=== PATIENT | male | born 1935 | race Caucasian/White ===

== ENCOUNTER 2019-10-21 11:02 | Emergency (ER) | payer MEDICARE, SELFPAY ==
[2019-10-21 11:07] VITALS: BP 190/75; PULSE 76; RESP 19; TEMP 36.4; O2SAT 94; BMI 20.9
[2019-10-21 11:13] VITALS: PULSE 75; RESP 17; O2SAT 95
--- NOTE | 2019-10-21 11:20 | USCV_ITS ---
WarrenKassie alicea Age: 84 Gender: M : 1935 Exam Date: 10/21/2019 11:43 Ordering Phys: Emily Carrasco Technologist: Edith Carlos [place]am [place] [facility] [place]ication: PAIN IN CALVES AND TAILBONE Risk Factors: Unknown Previous Vascular Surgery: None RIGHT LEFT BP: 160.0 / 67.00 BP: 150.0/ 75.00 0 0 Waveform Velocity (cm/s) Velocity (cm/s) Waveform Triphasic 76.6 Iliac Prox 141.4 Triphasic Triphasic 90.4 Iliac Mid 112.3 Biphasic Triphasic 79.6 Iliac Distal 112.3 Biphasic Triphasic 96.1 BRIM RAISER 212.5 Biphasic Triphasic 76.0 SFA Prox 89.3 Biphasic Triphasic 100.2 SFA Mid 147.5 Biphasic Triphasic 103.8 SFA Dist 97.5 Biphasic Biphasic 84.5 POP 106.0 Biphasic Biphasic 37.1 WIRE ROPE SLING MAKER 26.8 Biphasic Biphasic 23.1 DPA 23.4 Biphasic ELIOT 0.6 0.8 FINDINGS RT WIRE ROPE SLING MAKER 120 RT DPA 120 LT DPA 90 LT WIRE ROPE SLING MAKER 90 Moderate to dense heavy irregular plaques in the iliac and femoral arteries bilaterally Moderate diffuse dense irregular plaques in the right iliac and femoral arteries. CONCLUSIONS Abnormal resting ELIOT on the left side consistent with a moderately severe multi-segmental peripheral artery disease, ELIOT of 0.6 Abnormal resting ELIOT on the right side, suggestive of mild to moderate peripheral artery disease, ELIOT of 0.8 No similar previous studies are available for comparison Dr Chidi Mclean MD [facility] (Electronically Signed) Final Date: 21 October 2019 18:00 S
--- NOTE | 2019-10-21 11:24 | ED_ITS ---
HPI - Extremity Problem General: Chief complaint: Extremity Injury, Lower Stated complaint: pain both legs Time Seen by Provider: 10/21/19 11:06 Source: patient and family Mode of arrival: ambulatory Limitations: no limitations History of Present Illness: HPI Narrative: Patient is a very nice 84-year-old male who presents to ED today along with a family member for complaints of bilateral intermittent calf pain that has been present over the past few weeks. Patient tells me pain seems to be worse with walking/exertion. He states that he feels like he is about to develop muscle cramps to the calves however does not. He states he has noticed some coolness to the extremities. He complains of some lower tailbone pain as well. Patient denies numbness, tingling, loss of sensation to the lower extremities. He is not having any chest pain, shortness of breath, difficulty breathing. Patient does not have any known peripheral vascular disease. Family states he did have a cardiac balloon angioplasty a few years ago. MD Complaint: extremity pain Onset (ago): week(s) Pain Consistency: intermittent Location: left, right and lower extremity Quality: other (crampy) Exacerbating factors: walking Associated symptoms: Reports no associated symptoms; Deny chest pain, fever(s) or rash Review of Systems Const: Denies: fever(s), chills or body aches Card: Reports: leg pain with exertion; Denies: chest pain, palpitations, irregular heart rhythm, edema, swelling of feet/ankles, lightheadedness, syncope, pre-syncope, dyspnea on exertion, orthopnea or acrocyanosis Resp: Denies: dyspnea, productive cough, non-productive cough, hemoptysis or chest congestion GI: Denies: abdominal pain, nausea or vomiting : Denies: flank pain, difficulty urinating, dysuria, urinary frequency, ur inary urgency or urinary hesitancy Musc: Reports: back pain and extremity pain; Denies: neck pain, extremity swelling, joint pain, joint swelling, joint redness, joint warmth, joint stiffness or limited range of motion Skin/Breast: Denies: rash, skin pain, new lesions, changing lesions or changes in skin color Neuro: Denies: headache(s), numbness in extremities, weakness in extremities or sensory changes Physical Exam Const: COMMON NORMALS: no acute distress, patient oriented x3, no limitations and alert ORIENTATION/CONSCIOUSNESS: Yes oriented to person, Yes oriented to place and Yes oriented to time HENMT: COMMON NORMALS: normocephalic and atraumatic HEAD & SCALP: normocephalic and atraumatic Neck/C-Spine: COMMON NORMALS: full ROM GENERAL: Yes normal visual inspection Resp: COMMON NORMALS: normal respiratory effort and clear to auscultation bilaterally AUSCULTATION: clear to auscultation bilaterally Cardio: COMMON NORMALS: regular rate RATE: regular rate RHYTHM: abnormal rhythm with ectopic beats GI: COMMON NORMALS: Normal to inspection, nondistended, normoactive bowel sounds present, Soft to palpation, non-tender, No hepatosplenomegaly present and no masses PALPATION: Yes Soft to palpation and Yes No hepatosplenomegaly present : COMMON NORMALS: Yes no CVA tenderness BLADDER/KIDNEY EXAM: Yes no CVA tenderness Back/Pelvis: COMMON NORMALS: no CVA tenderness, thoracic and lumbar spine normal to inspection, no thoracic nor lumbar tenderness and thoraco-lumbar ROM normal OTHER: reports pain to lower sacral/coccyx region Extremity: OTHER: pts bilateral LEs are cool to the touch; he has good DP pulses; PT pulses are weak bilaterally; negative Sean's; no redness or swelling noted to either extremity Neuro: COMMON NORMALS: patient oriented x3, moves all extremities, no focal motor deficits, no sensory deficits noted and gait normal SENSORIUM/ORIENTATION: Yes alert, Yes oriented to person, Yes oriented to place and Yes oriented to time Skin: COMMON NORMALS: no rashes or lesions noted GENERAL SKIN EXAM: no rashes or lesions noted Course Vital Signs: Vital signs: Vital Signs Temperature 97.5 F L 10/21/19 11:07 Pulse Rate 72 10/21/19 13:18 Respiratory Rate 18 10/21/19 13:18 Blood Pressure 162/89 10/21/19 13:18 Pulse Oximetry 96 10/21/19 13:18 MDM - Extremity (Nontraumatic) MDM Narrative: Medical decision making narrative: Spoke to Dr. Birch regarding most appropriate imaging evaluation whether it be the ultrasound arterial versus CTA aorta with runoff. He feels with symptoms being intermittent for weeks and no signs of acute limb ischemia we should proceed with ultrasound arterial at this time. Patient has at least biphasic in some places triphasic flow throughout his lower extremities. He does complain of lower tailbone pain. His symptoms do not seem consistent with bilateral sacral radiculopathy. Symptoms seem more consistent with claudication. Patient states he does have a laboratory development technician and vascular surgeon that he is seen in [place]. He states he would like to follow-up with them but if he changes his mind will contact his PCP so they can refer him to a laboratory development technician or Dr. Lennon here. Patient noted to be hypertensive. He has no history of hypertensive nor is on blood pressure medications. Recommend he keep a blood pressure log and if blood pressures remain elevated he is to fill his lisinopril and start taking it. He is requesting something to help with the pain as he is having trouble sleeping. We will write him for a small amount of pain medications. Recommend he follow- up with PCP in the meantime. Strict return to ED precautions given. Lab Data: Labs: Lab Results 10/21/19 10/21/19 Range/Units 11:32 11:32 WBC 8.5 (4.0-10.0) 10^3/ uL RBC 4.63 (4.1-5.3) 10^6/u L Hgb 14.5 (11.7-16.6) g/dL Hct 44.7 (42.0-52.0) % MCV 96.5 H (80-94) fL MCH 31.3 (28.0-34.0) pg MCHC 32.4 (30.0-36.0) g/dL RDW 14.3 (12.1-15.1) % Plt Count 389 (130-400) 10^3/c mm MPV 10.5 H (7.4-10.4) fL Neut % (Auto) 85.4 % Lymph % (Auto) 4.9 % [place] % (Auto) 5.4 % Eos % (Auto) 2.8 % Baso % (Auto) 1.1 % Neut # (Auto) 7.27 (1.8-7.7) 10^3/u L Lymph # (Auto) 0.4 L (0.8-4.8) 10^3/u L [place] # (Auto) 0.5 (0.2-0.9) 10^3/u L Eos # (Auto) 0.2 (0.0-0.8) 10^3/u L Baso # (Auto) 0.1 (0.0-0.1) 10^3/u L Nucleated RBC % (a uto) 0 % Nucleated RBCs # 0.0 /100WBC Sodium 139 (136-145) mmol/L Potassium 4.2 (3.5-5.1) mmol/L Chloride 103 (98-107) mmol/L Carbon Dioxide 27 (22-29) mmol/L Anion Gap 13.2 (5-19) BUN 17 (8-23) mg/dL Creatinine 1.0 (0.7-1.2) mg/dL GFR Calculation Not Reportable Glucose 131 H (65-115) mg/dL Calculated Osmolal ity 286 (285-295) mOsm/k g Calcium 10.0 (8.5-10.5) mg/dL Total Bilirubin 0.4 (0.15-1.2) mg/dL AST 22 (0-40) U/L ALT 15 (0-41) U/L Alkaline Phosphata se 67 (40-130) IU/L Creatine Kinase 104 (39-308) U/L Total Protein 6.9 (6.6-8.7) g/dL Albumin 4.4 (3.5-5.2) g/dL Globulin 2.5 (1.3-4.6) g/dL Imaging Data^: US bilateral LE arterial : My impression: Per Edith US tech-patient has at least biphasic flow through bilateral LEs, some areas with triphastic flow; ELIOT L LE 0.6, R LE 0.8 Discharge Plan Discharge Patient Disposition: Home Clinical Impression: Claudication of both lower extremities Hypertension Qualifiers: Hypertension type: essential hypertension Qualified Code(s): I10 - Essential (primary) hypertension Condition: Stable Prescriptions: New hydrocodone-acetaminophen 5-325 mg tablet 1 tab PO Q6H PRN (Reason: pain) Qty: 14 RF: 0 lisinopril 10 mg tablet 10 mg PO DAILY Qty: 30 RF: 0 No Action aspirin 325 mg Tablet 325 mg PO DAILY RF: 0 multivitamin Tablet 1 tab PO DAILY RF: 0 Wixela Inhub 250-50 mcg/dose blister with device 2 inh INHALATION BID RF: 0 Discharge Orders: Discharge Order (Routine); Ordered 10/21/19 Ordered By: Emily Carrasco Referrals: Lelsie Morris FNP [Primary Care Provider] - Patient Instructions: Peripheral Vascular Disorders (ED), Hypertension (ED) Activity Restrictions/Additional Instructions: As discussed you have mentioned he would like to follow-up with your laboratory development technician/vascular surgeon in [place]. Please contact their office as soon as possible to schedule a follow-up visit. Begin a blood pressure log- taking your blood pressures twice daily. If blood pressures continually are running anything over 140/90 then you need to fill the Lisinopril and start taking this. Please followup with primary care in the meantime for re-evaluation following your ER visit. Return to the emergency department for worsening pain, chest pain, shortness of breath, difficulty breathing, or any other concerns you may have. Discharge Date/Time: 10/21/19 13:21 Coding Level of Care Code ED Grain Scooper for Xi Fwjeny Exam Comprehensive
[2019-10-21 11:36] LABS: Basophils # 0.1 10^3/uL (0.0-0.1); Basophils % 1.1 %; Eosinophils # 0.2 10^3/uL (0.0-0.8); Eosinophils % 2.8 %; Hematocrit 44.7 % (42.0-52.0); Hemoglobin 14.5 g/dL (11.7-16.6); Lymphocytes # 0.4 10^3/uL (0.8-4.8); Lymphocytes % 4.9 %; Mean Corpuscular HGB Conc 32.4 g/dL (30.0-36.0); Mean Corpuscular Hemoglobin 31.3 pg (28.0-34.0); Mean Corpuscular Volume 96.5 fL (80-94); Mean Platelet Volume 10.5 fL (7.4-10.4); Monocytes # 0.5 10^3/uL (0.2-0.9); Monocytes % 5.4 %; Neutrophils # 7.27 10^3/uL (1.8-7.7); Neutrophils % 85.4 %; Nucleated Red Blood Cells % 0 %; Platelet Count 389 10^3/cmm (130-400); Red Blood Count 4.63 10^6/uL (4.1-5.3); Red Cell Distribution Width 14.3 % (12.1-15.1); White Blood Count 8.5 10^3/uL (4.0-10.0)
[2019-10-21 11:54] LABS: Alanine Aminotransferase 15 U/L (0-41); Albumin Level 4.4 g/dL (3.5-5.2); Alkaline Phosphatase 67 IU/L (40-130); Anion Gap 13.2 (5-19); Aspartate Amino Transferase 22 U/L (0-40); Blood Urea Nitrogen 17 mg/dL (8-23); Carbon Dioxide 27 mmol/L (22-29); Chloride 103 mmol/L (98-107); Creatine Phosphokinase 104 U/L (39-308); Globulin 2.5 g/dL (1.3-4.6); Glucose 131 mg/dL (65-115); Osmolality Calculated 286 mOsm/kg (285-295); Potassium 4.2 mmol/L (3.5-5.1); Sodium 139 mmol/L (136-145); Total Bilirubin 0.4 mg/dL (0.15-1.2); Total Protein 6.9 g/dL (6.6-8.7)
[2019-10-21 13:18] VITALS: BP 162/89; PULSE 72; RESP 18; O2SAT 96
== END 2019-10-21 13:21 | disposition home or self-care (01) ==
PROVIDERS: Emergency Provider Physician Assistant; PCP Nurse Practitioner Family
DX: I73.9 Peripheral vascular disease, unspecified (principal); I10 Essential (primary) hypertension; Z79.82 Long term (current) use of aspirin
CPT/HCPCS: 12345; 36415; 80053; 82550; 85025; 93925; 99282; 99283

== ENCOUNTER 2020-05-27 14:06 | Emergency (ER) | payer MEDICARE, SELFPAY ==
[2020-05-27 14:06] VITALS: BP 124/62; PULSE 94; RESP 18; TEMP 36.9; O2SAT 88; BMI 20.5
--- NOTE | 2020-05-27 14:07 | XR_ITS ---
WS: [id number] Exam: XR chest 1V portable [id number] Date/Time of Exam: 05/27/2020 2:07 PM Reason For Exam: weakness Comparison 04/28/2018. A wedge-shaped density is noted along the right heart border and could represent atelectasis or locul ated pleural effusion. A mass is not ruled out but felt to be unlikely. Additional areas of plaque at electasis in the right lower lobe. The lungs are otherwise clear and fully expanded. No pleural effus ions. Normal cardiomediastinal structures. Healing fracture of the distal left clavicle is noted. Rec ent appearing fracture of the posterior lateral right fourth rib noted. Old fractures of the right ri b cage and right scapula noted. Several old left-sided rib fractures also noted. No pneumothorax. XR/XR chest 1V portable [id number] IMPRESSION: 1. Wedge-shaped density along the right heart border suggesting either loculate d pleural effusion or atelectasis. A mass is much less likely. Additional areas of plaque atelectasis in the right lower lobe. 2. Healing fracture of the distal left clavicle. Recent appearing fracture of t he posterior lateral right fourth rib. There are also old fractures of the rib cage and right scapula noted.
--- NOTE | 2020-05-27 14:08 | ECG_ITS ---
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 Measurements Intervals Howe Rate: 93 P: 48 CO: 168 QRS: 32 QRSD: 84 T: 48 QT: 338 QTc: 422 Interpretive Statements SINUS RHYTHM WITH FREQUENT SUPRAVENTRICULAR PREMATURE COMPLEXES Compared to ECG 04/28/2018 18:51:07 Sinus arrhythmia no longer present Myocardial infarct finding no longer present Electronically Signed On 05-27-2020 17:40:15 CDT by Manuel Cuevas M.D. [id number]
[2020-05-27 14:14] VITALS: BP 124/62; PULSE 96; RESP 18; O2SAT 94
--- NOTE | 2020-05-27 14:14 | W.ED.WEAKNES ---
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 Patient is on chemo and states he had chemo last week and has been feeling extremely weak since then. He states this happens every time he is chemotherapy. He states that he has just had generalized weakness and does not feel well he denies any fever cough. Patient here is in no distress and able answer all my questions appropriately. Denies any vomiting or diarrhea. Associated symptoms: Denies chest pain, chills, dysuria, easy bruising, fever(s), headache(s), nausea or vomiting Review of Systems Const: Denies: fever(s), chills, body aches or change in appetite Eyes: Denies: blurry vision or eye discomfort ENMT: Denies: throat pain or dental pain Card: Denies: chest pain Resp: Denies: dyspnea GI: Denies: abdominal pain, nausea, vomiting or diarrhea : Denies: dysuria Musc: Denies: neck pain or back pain Skin/Breast: Denies: rash Neuro: Reports: weakness in extremities; Denies: headache(s) Psych: Denies: depression Howard/Lymph: Denies: easy bruising All/Imm: Denies: urticaria Physical Exam Const: COMMON NORMALS: no acute distress and patient oriented x3 GENERAL APPEARANCE: frail appearing HENMT: COMMON NORMALS: normocephalic and atraumatic HEAD & SCALP: normocephalic and atraumatic Eye: COMMON NORMALS: Equal, round and reactive pupils present and EOMs intact bilaterally PUPIL: Yes Equal, round and reactive pupils present Neck/C-Spine: COMMON NORMALS: full ROM and supple Chest: COMMONS NORMALS: normal inspection of the chest and normal palpation of entire chest wall Resp: COMMON NORMALS: normal respiratory effort, No retractions, No use of accessory muscles and clear to auscultation bilaterally AUSCULTATION: clear to auscultation bilaterally Cardio: COMMON NORMALS: regular rate, regular rhythm and No murmurs present (Cardio) RATE: regular rate RHYTHM: regular rhythm GI: COMMON NORMALS: Normal to inspection, nondistended, normoactive bowel sounds present, Soft to palpation, non-tender and no masses PALPATION: Yes Soft to palpation Extremity: COMMON NORMALS: normal to inspection and full ROM Neuro: COMMON NORMALS: patient oriented x3, moves all extremities and no focal motor deficits Psych: COMMON NORMALS: mental status grossly normal, Normal thought process present and cooperative THOUGHT PROCESS: Normal thought process present Skin: COMMON NORMALS: no rashes or lesions noted and no wounds GENERAL SKIN EXAM: no rashes or lesions noted Course Vital Signs: Vital signs: Vital Signs Temperature 98.3 F 05/27/20 15:46 Pulse Rate 86 05/27/20 15:46 Respiratory Rate 22 H 05/27/20 15:46 Blood Pressure 111/61 05/27/20 15:46 Pulse Oximetry 98 05/27/20 15:46 MDM - Weakness MDM Narrative: Medical decision making narrative: Patient presents here with hyponatremia likely causing his weakness. He states he feels improved here. I strongly recommended admission he refused stating he does not want to stay in the hospital. Informed him he could get worse and he decided to sign AGAINST MEDICAL ADVICE. Informed him to drink plenty of fluids needs to follow-up his primary care doctor in 3 to 5 days for repeat lab draw. He is return if worsening or if he changes his mind. Lab Data: Labs: Lab Results 05/27/20 05/27/20 Range/Units 14:40 14:40 WBC 10.5 H (4.0-10.0) 10^3/ uL RBC 3.23 L (4.1-5.3) 10^6/u L Hgb 9.2 L (11.7-16.6) g/dL Hct 29.4 L (42.0-52.0) % MCV 91.0 (80-94) fL MCH 28.5 (28.0-34.0) pg MCHC 31.3 (30.0-36.0) g/dL RDW 20.5 H (12.1-15.1) % Plt Count 347 (130-400) 10^3/c mm MPV 10.6 H (7.4-10.4) fL Neut % (Auto) 84.5 % Lymph % (Auto) 1.7 % [place] % (Auto) 10.5 % Eos % (Auto) 0.7 % Baso % (Auto) 0.8 % Neut # (Auto) 8.90 H (1.8-7.7) 10^3/u L Lymph # (Auto) 0.2 L (0.8-4.8) 10^3/u L [place] # (Auto) 1.1 H (0.2-0.9) 10^3/u L Eos # (Auto) 0.1 (0.0-0.8) 10^3/u L Baso # (Auto) 0.1 (0.0-0.1) 10^3/u L Nucleated RBC % (a uto) 0 % Nucleated RBCs # 0.0 /100WBC Sodium 125 L (136-145) mmol/L Potassium 4.3 (3.5-5.1) mmol/L Chloride 92 L (98-107) mmol/L Carbon Dioxide 26 (22-29) mmol/L Anion Gap 11.3 (5-19) BUN 10 (8-23) mg/dL Creatinine 0.5 L (0.7-1.2) mg/dL GFR Calculation Not Reportable Glucose 111 (65-115) mg/dL Calculated Osmolal ity 260 L (285-295) mOsm/k g Calcium 8.7 (8.5-10.5) mg/dL Magnesium 2.1 (1.7-2.3) mg/dL Total Bilirubin 0.4 (0.15-1.2) mg/dL AST 14 (0-40) U/L ALT 17 (0-41) U/L Alkaline Phosphata se 135 H (40-130) IU/L Total Protein 5.9 L (6.6-8.7) g/dL Albumin 3.0 L (3.5-5.2) g/dL Globulin 2.9 (1.3-4.6) g/dL TSH 3.09 (0.27-4.20) uIU/ mL Imaging Data^: CXR: Attestation: I personally reviewed and interpreted this imaging study as follows: Radiologist's impression: [address] [address] XRay Report Signed Patient: Kassie Kelley Unit #: [id number] : 1935 Age/Sex: 85 / M ADM Date: 05/27/20 Loc: ER Room/Bed: Attending Dr: Ordering Provider/Ordering MD: Gregg Alexis MD Date of Service: 05/27/20 Procedure(s): XR chest 1V portable [id number] Accession Number(s): [id number] Report Number: [id number] WS: [id number] Exam: XR chest 1V portable [id number] Date/Time of Exam: 05/27/2020 2:07 PM Reason For Exam: weakness Comparison 04/28/2018. A wedge-shaped density is noted along the right heart border and could represent atelectasis or loculated pleural effusion. A mass is not ruled out but felt to be unlikely. Additional areas of plaque atelectasis in the right lower lobe. The lungs are otherwise clear and fully expanded. No pleural effusions. Normal cardiomediastinal structures. Healing fracture of the distal left clavicle is noted. Recent appearing fracture of the posterior lateral right fourth rib noted. Old fractures of the right rib cage and right scapula noted. Several old left-sided rib fractures also noted. No pneumothorax. XR/XR chest 1V portable [id number] IMPRESSION: 1. Wedge-shaped density along the right heart border suggesting either loculated pleural effusion or atelectasis. A mass is much less likely. Additional areas of plaque atelectasis in the right lower lobe. 2. Healing fracture of the distal left clavicle. Recent appearing fracture of the posterior lateral right fourth rib. There are also old fractures of the rib cage and right scapula noted. EKG Data^: EKG 1: Attestation: I personally reviewed and interpreted this EKG as follows: EKG interpretation date: 05/27/20 EKG interpretation time: 14:40 Interpretation: nsr hr [address] or t wave abnormalities qrs 84 qtc 389 Discharge Plan Discharge Patient Disposition: Left Against Medical Advice Clinical Impression: Hyponatremia, Weakness Condition: Stable Prescriptions: No Action prednisone 10 mg tablet 10 mg PO DAILY@08 RF: 0 ondansetron HCl 8 mg tablet 8 mg PO Q8H PRN (Reason: Nausea And Vomiting) RF: 0 prochlorperazine maleate 10 mg tablet See Rx Instructions .ROUTE .COMPLEX RF: 0 dexamethasone 4 mg tablet See Rx Instructions .ROUTE .COMPLEX RF: 0 Wixela Inhub 500-50 mcg/dose blister with device 1 ea INHALATION BID RF: 0 omeprazole 20 mg capsule,delayed release(DR/EC) 20 mg PO DAILY@08 RF: 0 folic acid 1 mg tablet See Rx Instructions .ROUTE .COMPLEX RF: 0 ProAir HFA 90 mcg/actuation HFA aerosol inhaler 2 puff INHALATION Q6H PRN (Reason: Shortness Of Breath) RF: 0 oxycodone 5 mg tablet See Rx Instructions .ROUTE .COMPLEX RF: 0 Fish Oil 1,200 (144-216) mg Capsule 2,400 cap PO DAILY RF: 0 Neulasta See Rx Instructions .ROUTE .COMPLEX RF: 0 docetaxel See Rx Instructions .ROUTE .COMPLEX RF: 0 aspirin 325 mg Tablet 325 mg PO DAILY@08 RF: 0 multivitamin Tablet 1 tab PO DAILY@08 RF: 0 Discharge Orders: Discharge ED (Routine); Ordered 05/27/20 Ordered By: Gregg Alexis Referrals: Leslie Morris FNP [Primary Care Provider] - 1-3 days Discharge Diet: Advance as tolerated Discharge Activity: Resume usual activity Patient Instructions: Hyponatremia (ED) Coding Level of Care Code ED Supervisor Assembly [employer] Packing for Millig Fwd Exam Comprehensive
[2020-05-27] MEDS: sodium chloride 0.9% 1,000 ML 999 ML IV (14:52)
[2020-05-27 14:56] LABS: Basophils # 0.1 10^3/uL (0.0-0.1); Basophils % 0.8 %; Eosinophils # 0.1 10^3/uL (0.0-0.8); Eosinophils % 0.7 %; Hematocrit 29.4 % (42.0-52.0); Hemoglobin 9.2 g/dL (11.7-16.6); Lymphocytes # 0.2 10^3/uL (0.8-4.8); Lymphocytes % 1.7 %; Mean Corpuscular HGB Conc 31.3 g/dL (30.0-36.0); Mean Corpuscular Hemoglobin 28.5 pg (28.0-34.0); Mean Platelet Volume 10.6 fL (7.4-10.4); Monocytes # 1.1 10^3/uL (0.2-0.9); Monocytes % 10.5 %; Neutrophils % 84.5 %; Nucleated Red Blood Cells % 0 %; Platelet Count 347 10^3/cmm (130-400); Red Blood Count 3.23 10^6/uL (4.1-5.3); Red Cell Distribution Width 20.5 % (12.1-15.1); White Blood Count 10.5 10^3/uL (4.0-10.0)
[2020-05-27 14:58] VITALS: BP 122/64; PULSE 84; RESP 18; O2SAT 97
[2020-05-27 15:31] LABS: Alanine Aminotransferase 17 U/L (0-41); Alkaline Phosphatase 135 IU/L (40-130); Anion Gap 11.3 (5-19); Aspartate Amino Transferase 14 U/L (0-40); Blood Urea Nitrogen 10 mg/dL (8-23); Calcium 8.7 mg/dL (8.5-10.5); Carbon Dioxide 26 mmol/L (22-29); Chloride 92 mmol/L (98-107); Globulin 2.9 g/dL (1.3-4.6); Glucose 111 mg/dL (65-115); Magnesium 2.1 mg/dL (1.7-2.3); Osmolality Calculated 260 mOsm/kg (285-295); Potassium 4.3 mmol/L (3.5-5.1); Sodium 125 mmol/L (136-145); Thyroid Stimulating Hormone 3.09 uIU/mL (0.27-4.20); Total Bilirubin 0.4 mg/dL (0.15-1.2); Total Protein 5.9 g/dL (6.6-8.7)
[2020-05-27 15:41] LABS: Slide Review Slide Review Perform
[2020-05-27 15:46] VITALS: BP 111/61; PULSE 86; RESP 22; TEMP 36.8; O2SAT 98
--- NOTE | 2020-05-27 15:49 | PC.PHAR ---
PTS FAMILY STATES THEY TAKE CARE OF THE PTS MEDICATIONS-TS FAMILY HAS A MED LIST WITH THEM-LIST HAS DOCETAXEL 4MG 2 TABS AM AND 2 TABS HS DURING CHEMO EVERY 3 WEEKS-PTS FAMILY STATES SHE MEANT IT SHOULD BE DEXAMETHASONE AND STATES IT MUSTVE BEEN INCREASED FROM JUST 2 TABS DAILY TO 2 TABS BID-PTS OXYCODONE WAS FILLED 5-10MG PO Q4H PRN FAMILY STATES PT TAKES 2 TABS AT 5AM AND 2 TABS AT 21:00-PTS FAMILY STATES THE PT TAKES COMPAZINE 10MG PO QAM RX FILLED 10MG PO Q6H PRN-
[2020-05-27 16:04] LABS: Add Urine Microscopic? NO
[2020-05-27 16:13] LABS: Bilirubin Urine Neg (Negative); Blood Urine Neg (Negative); Glucose Urine UA Norm (Normal); Ketones Urine Negative (Negative); Leukocyte Esterase Urine Negative (Negative); Nitrate Urine Negative (Negative); Protein Urine Neg (Negative); Specific Gravity, Urine 1.005 (1.005-1.030); Urine Appearance Clear (CLEAR); Urine Color Yellow (Yellow); Urobilinogen Urine Norm (Negative); pH Urine 7 (5-7)
== END 2020-05-27 16:00 | disposition left against medical advice (07) ==
PROVIDERS: Emergency Provider Emergency Medicine; PCP Nurse Practitioner Family
DX: R53.1 Weakness (principal); E87.1 Hypo-osmolality and hyponatremia; Z53.21 Procedure and treatment not carried out due to patient leaving prior to being seen by health care provider; Z79.82 Long term (current) use of aspirin
CPT/HCPCS: 71045; 80053; 81003; 83735; 84443; 85025; 93005; 96360; 99284; J7030